=== PATIENT | male | born 1980 | race Hispanic/Latino ===

== ENCOUNTER 2023-04-23 02:31 | Emergency (ER) | payer BC, OTHER, SELFPAY ==
[2023-04-23] MEDS ORDERED: Ketorolac Tromethamine 30 MG/ML VIAL ONE (02:59)
[2023-04-23] MEDS ORDERED: Sodium Chloride 0.9% 1,000 ML ONE (03:00)
[2023-04-23 03:01] LABS: Bilirubin Negative (Negative); Blood, Urine Moderate (Negative); Clarity Clear (Clear); Glucose, Urine (Dipstick) Negative (Negative); Ketone, Urine Negative (Negative); Leukocyte Negative (Negative); Nitrite Negative (Negative); Protein, Urine (Dipstick) Negative (Neg-Trace); Specific Gravity, Urine 1.025 (1.005-1.030); Urobilinogen 0.2 mg/dL (Less than 2)
[2023-04-23 03:03] LABS: #Basophils 0.1 thou/uL (0.0-0.2); #Eosinphils 0.2 thou/uL (0.0-0.7); #Lymphocytes 2.5 thou/uL (1.20-3.40); #Monocytes 0.6 thou/uL (0.11-0.59); #Neutrophils 7.6 thou/uL (1.40-6.50); %Basophils 1.2 % (0.0-1.0); %Eosinophils 1.8 % (0.0-10.0); %Lymphocytes 22.8 % (21.0-51.0); %Monocytes 5.6 % (0.0-10.0); %Neutrophils 68.6 % (42.0-75.0); Hematocrit 46.9 % (42.0-52.0); Mean Corpuscular HGB CONC 34.2 g/dL (32.0-36.0); Mean Corpuscular Hemoglobin 30.9 pg (27.0-31.0); Mean Corpuscular Volume 90.4 fl (78.0-98.0); Mean Platelet Volume 8.5 fL (7.4-10.4); Platelet Count 338 10x3/uL (130-400); RBC Distribution Width 12.1 % (11.5-14.5); Red Blood Cell (RBC) Count 5.19 mill/uL (4.70-6.10)
[2023-04-23 03:06] LABS: Bacteria/HPF None Seen HPF (None Seen); CAUTI Indications for Culture Pelvic or flank pain; Squamous Epithelial None Seen HPF (0-3); Urine Culture Reflex No No; WBC/HPF None Seen HPF (0-3)
[2023-04-23 03:18] LABS: ALT (SGPT) 47 U/L (8-55); AST (SGOT) 31 U/L (5-34); Albumin 4.9 g/dL (3.5-5.0); Alkaline Phosphatase 106 U/L (40-110); Anion Gap 19 mmol/L (10-20); BUN (Urea Nitrogen) 17 mg/dL (8.9-20.6); Bilirubin, Total 0.4 mg/dL (0.2-1.2); Calc. Creatinine Clearance 0 mL/min (70-130); Calcium 9.6 mg/dL (7.8-10.44); Carbon Dioxide 22 mmol/L (22-29); Chloride 102 mmol/L (98-107); Estimated GFR 65; Globulin 3.3 g/dL (2.4-3.5); Glucose 142 mg/dL (70-105); Potassium 3.7 mmol/L (3.5-5.1); Protein, Total 8.2 g/dL (6.0-8.3); Sodium 139 mmol/L (136-145)
[2023-04-23] MEDS ORDERED: fentaNYL 50 mcg/mL 1 mL Vial ONE ×2 (03:42→05:01)
[2023-04-23 04:17] LABS: Acetaminophen Less than 10 mcg/mL (10.0-30.0)
[2023-04-23] MEDS ORDERED: Tamsulosin HCl 0.4 MG CAP ONE (04:45)
== END 2023-04-23 05:30 | disposition home or self-care (01) ==
LOC: NAV ERS 02:31
DX: N13.2 Hydronephrosis with renal and ureteral calculous obstruction (principal); I10 Essential (primary) hypertension
CPT/HCPCS: 74176; 80053; 80143; 81001; 85025; 96374; 96375; 80307; J1885; J3010; J7050